=== PATIENT | female | born 1955 | race African-American/Black ===

== ENCOUNTER 2023-10-13 08:11 | Outpatient (CLI) | payer OTHER | END 2023-10-13 08:12 | disposition home or self-care (01) | LOC: BICMAMMO 08:11 | PROVIDERS: ATTEND Nurse Practitioner Family | DX: Z12.31 Encounter for screening mammogram for malignant neoplasm of breast (principal); Z80.3 Family history of malignant neoplasm of breast | CPT/HCPCS: 77067 ==